=== PATIENT | female | born 1935 | race American Indian/Alaskan Native ===

== ENCOUNTER 2016-10-20 12:30 | Inpatient (IN) | payer OTHER ==
[~2016-10-20] VITALS: Ht 160 cm; Wt 50.8 kg
[2016-10-20] MEDS ORDERED: SODIUM CHLORIDE 0.9%, 500ML IVBOLUS ONE (14:00)
[2016-10-20 15:24] LABS: ASPARTATE AMINO TRANSFERASE 19 U/L (15-37); BLOOD UREA NITROGEN 25 mg/dL (7-18)
[2016-10-20 15:31] LABS: IS PT STATUS REG ER OR PRE ER? YES
[2016-10-20] MEDS ORDERED: DIPH,PERTUSS(ACELL),TET VAC/PF 0.5 ML IM-VACC ONE ×2 (16:30→16:42)
[2016-10-20] MEDS ORDERED: ENALAPRILAT 1.25 MG/ML, 2ML IVPush PRN (18:00)
[2016-10-20] MEDS ORDERED: ACETAMINOPHEN 325 MG TABLET PO PRN (18:00)
[2016-10-20] MEDS ORDERED: ONDANSETRON ODT 4 MG PO PRN (18:00)
[2016-10-20] MEDS ORDERED: DOCUSATE 100 MG CAPSULE PO PRN (18:00)
[2016-10-20] MEDS ORDERED: HYDROcodone/APAP 5/325 TABLET PO PRN (18:00)
[2016-10-20] MEDS ORDERED: TEMAZEPAM 15 MG CAPSULE PO PRN (18:00)
[2016-10-20] MEDS ORDERED: HEPARIN 5,000 UNITS/ML, 1ML ONE (18:19)
[2016-10-20] MEDS: HEPARIN 5,000 UNITS/ML, 1ML SQ SCH (18:21)
[2016-10-20] MEDS ORDERED: AMLO5TAB2 PO (18:29)
[2016-10-20] MEDS ORDERED: LISI40TA PO (18:29)
[2016-10-20] MEDS ORDERED: CA C1TAB60 PO (18:30)
[2016-10-20] MEDS ORDERED: OXYB10TA PO (18:30)
[2016-10-20] MEDS ORDERED: RANI75TA12 PO (18:31)
[2016-10-20] MEDS ORDERED: IRON1TAB60 PO (18:31)
[2016-10-20] MEDS: SODIUM CHLORIDE 0.9% 1,000 ML IV SCH (18:35)
[2016-10-20 20:00] VITALS: BP 157/84
[2016-10-20 22:43] VITALS: BP 157/84
[2016-10-21 02:00] VITALS: BP 160/80
[2016-10-21] MEDS: SODIUM CHLORIDE 0.9% 1,000 ML IV SCH ×3 (02:41→17:53)
[2016-10-21 02:56] LABS: PATH.CAST-FLAG NOT PRESENT; SPERM-FLAG NOT PRESENT; SRC-FLAG NOT PRESENT; XTAL-FLAG NOT PRESENT; YLC-FLAG NOT PRESENT
[2016-10-21] MEDS ORDERED: ASPIRIN 325 MG TABLET EC PO SCH (06:00)
[2016-10-21] MEDS: ASPIRIN 81 MG TABLET EC PO SCH (06:00)
[2016-10-21] MEDS: HEPARIN 5,000 UNITS/ML, 1ML SQ SCH ×3 (06:01→21:38)
[2016-10-21 06:06] LABS: BLOOD UREA NITROGEN 15 mg/dL (7-18)
[2016-10-21 06:36] VITALS: BP 161/81
[2016-10-21 14:00] VITALS: BP 164/81
[2016-10-21 20:00] VITALS: BP 161/70
[2016-10-22 02:00] VITALS: BP 177/95
[2016-10-22 05:59] LABS: BLOOD UREA NITROGEN 10 mg/dL (7-18)
[2016-10-22] MEDS: HEPARIN 5,000 UNITS/ML, 1ML SQ SCH ×3 (05:59→22:08)
[2016-10-22] MEDS: ASPIRIN 81 MG TABLET EC PO SCH (05:59)
[2016-10-22] MEDS: SODIUM CHLORIDE 0.9% 1,000 ML IV SCH ×2 (06:00→20:20)
[2016-10-22 06:55] VITALS: BP 177/94
[2016-10-22 10:00] VITALS: BP 156/77
[2016-10-22 14:11] VITALS: BP 159/91
[2016-10-22 14:15] VITALS: BP 105/68
[2016-10-22 19:23] VITALS: BP 153/73
[2016-10-23 02:00] VITALS: BP_SYST 167; BP_SYST 176; BP_DIAS 84; BP_DIAS 94
[2016-10-23] MEDS: ASPIRIN 81 MG TABLET EC PO SCH (04:41)
[2016-10-23 05:24] LABS: ASPARTATE AMINO TRANSFERASE 13 U/L (15-37); BLOOD UREA NITROGEN 12 mg/dL (7-18)
[2016-10-23] MEDS: HEPARIN 5,000 UNITS/ML, 1ML SQ SCH (06:12)
[2016-10-23 07:40] VITALS: BP 167/83
[2016-10-23] MEDS: SODIUM CHLORIDE 0.9% 1,000 ML IV SCH (08:11)
[2016-10-23] MEDS ORDERED: ASPI-621 PO (09:04)
[2016-10-23] MEDS ORDERED: ATOR40TA78 PO (09:04)
== END 2016-10-23 10:53 | disposition home health service (06) | DRG 69 ==
LOC: ED 15:22 → EDIP 16:23 → 4WST 19:33
PROVIDERS: ADMIT Hospitalist; ATTEND Hospitalist
PROC: 0T9B70Z Drainage of Bladder with Drainage Device, Via Natural or Artificial Opening (ICD-10-PCS; principal; 2016-10-20)
DX: G45.9 Transient cerebral ischemic attack, unspecified (principal); N17.0 Acute kidney failure with tubular necrosis; E44.0 Moderate protein-calorie malnutrition; Z68.1 Body mass index [BMI] 19.9 or less, adult; F03.90 Unspecified dementia, unspecified severity, without behavioral disturbance, psychotic disturbance, mood disturbance, and anxiety; D72.829 Elevated white blood cell count, unspecified; D64.9 Anemia, unspecified; E78.5 Hyperlipidemia, unspecified; S50.312A Abrasion of left elbow, initial encounter; S01.01XA Laceration without foreign body of scalp, initial encounter; W01.0XXA Fall on same level from slipping, tripping and stumbling without subsequent striking against object, initial encounter; H35.30 Unspecified macular degeneration; N18.3 Chronic kidney disease, stage 3 (moderate); I12.9 Hypertensive chronic kidney disease with stage 1 through stage 4 chronic kidney disease, or unspecified chronic kidney disease; Z91.81 History of falling
CPT/HCPCS: 36415; 70450; 70551; 71020; 72050; 80048; 80053; 80061; 81001; 82040; 82550; 83036; 83735; 84100; 84439; 84443; 84484; 85025; 87086; 87186; 90471; 90715; 93005; 93306; 93880; 96360; 96361; J1644; 92523-GN; J7030; J7040

== ENCOUNTER 2016-12-18 11:56 | Inpatient (IN) | payer OTHER ==
[~2016-12-18] VITALS: Ht 157.5 cm; Wt 54.4 kg
[~2016-12-18 11:56] MED LIST: AMLO5TAB2 PO; ASPI-621 PO; ATOR40TA78 PO; CA C1TAB60 PO; IRON1TAB60 PO; LISI40TA PO; OXYB10TA PO; RANI75TA12 PO
[2016-12-18] MEDS ORDERED: SODIUM CHLORIDE FLUSH 10ML SYR IVF ONE (12:00)
[2016-12-18 12:23] LABS: HEMATOCRIT 32.7 % (34.6-47.8); HEMOGLOBIN 10.9 g/dL (11.7-16.4); WHITE BLOOD COUNT 13.7 x10^3/uL (3.4-10)
[2016-12-18 12:36] LABS: BLOOD UREA NITROGEN 15 mg/dL (7-18)
[2016-12-18] MEDS ORDERED: LABETALOL 5MG/ML, 20ML ONE ×3 (13:05→16:23)
[2016-12-18] MEDS ORDERED: LABETALOL 5MG/ML, 20ML IVPush ONE (13:30)
[2016-12-18] MEDS ORDERED: BACITRACIN OINT 500U/GM, 15 GM ONE (13:36)
[2016-12-18] MEDS ORDERED: EPINEPHRINE 1 MG/ML, 1ML ONE (13:36)
[2016-12-18] MEDS ORDERED: BUPIVACAINE/PF 0.5% ONE (13:36)
[2016-12-18] MEDS ORDERED: THROMBIN 5,000 UNIT VIAL TP ONE (13:37)
[2016-12-18] MEDS ORDERED: BACITRACIN 50,000 UNIT ONE (13:37)
[2016-12-18] MEDS ORDERED: FENTANYL PF 100 MCG/2ML ONE ×2 (13:38)
[2016-12-18] MEDS ORDERED: MIDAZOLAM 1 MG/ML, 2ML ONE (13:39)
[2016-12-18] MEDS ORDERED: CEFUROXIME 1.5 GM ONE (14:02)
[2016-12-18] MEDS ORDERED: ROCURONIUM 10 MG/ML ONE (14:02)
[2016-12-18] MEDS ORDERED: PROPOFOL 10 MG/ML, 20ML ONE (14:02)
[2016-12-18] MEDS ORDERED: THROMBIN 20,000 UNIT VIAL TP ONE (14:46)
[2016-12-18] MEDS ORDERED: FENTANYL PF 100 MCG/2ML IV PRN (16:00)
[2016-12-18] MEDS ORDERED: ONDANSETRON 2MG/ML, 2ML IVPush PRN (16:00)
[2016-12-18] MEDS ORDERED: HYDROmorphone 1 MG/ML, 1ML IV PRN (16:00)
[2016-12-18] MEDS ORDERED: OXYcodone 5 MG/5 ML ORAL.SOL UDC PO PRN (16:00)
[2016-12-18] MEDS: LABETALOL 5MG/ML, 20ML IV PRN ×2 (16:24→16:34)
[2016-12-18] MEDS ORDERED: morphine SULFATE 10 MG/ML, 1ML IV PRN (18:00)
[2016-12-18] MEDS ORDERED: NS + 20MEQ KCL 1,000 ML IV SCH (18:00)
[2016-12-18] MEDS ORDERED: ACETAMINOPHEN 325 MG TABLET PO PRN ×2 (18:00)
[2016-12-18] MEDS ORDERED: LABETALOL 5MG/ML, 20ML IV PRN (18:00)
[2016-12-18] MEDS ORDERED: HYDROcodone/APAP 5/325 TABLET PO PRN (18:00)
[2016-12-18] MEDS ORDERED: OXYcodone/APAP 5/325MG TABLET PO PRN (18:00)
[2016-12-18] MEDS ORDERED: ACETAMINOPHEN 650 MG SUPP PR PRN ×2 (18:00)
[2016-12-18] MEDS ORDERED: DIPHENHYDRAMINE 50 MG/ML, 1ML IV PRN (18:00)
[2016-12-18] MEDS ORDERED: ONDANSETRON 2MG/ML, 2ML IV PRN (18:00)
[2016-12-18] MEDS: hydrALAzine 20 MG/ML, 1ML IV PRN (18:03)
[2016-12-18] MEDS: INSULIN REGULAR 100 UNITS/ML, 3ML VIAL SQ-INSULIN SCH (20:54)
[2016-12-18] MEDS: CEFAZOLIN PMX 1GM/50ML 50 ML IVPB SCH (20:57)
[2016-12-18 21:00] VITALS: BP 138/84
[2016-12-18] MEDS: FAMOTIDINE 20 MG/2 ML IVPush SCH (21:05)
[2016-12-19 04:32] LABS: WHITE BLOOD COUNT 9.3 x10^3/uL (3.4-10)
[2016-12-19 04:40] LABS: BLOOD UREA NITROGEN 13 mg/dL (7-18)
[2016-12-19] MEDS: CEFAZOLIN PMX 1GM/50ML 50 ML IVPB SCH (05:04)
[2016-12-19] MEDS: INSULIN REGULAR 100 UNITS/ML, 3ML VIAL SQ-INSULIN SCH ×4 (07:00→20:30)
[2016-12-19] MEDS: FAMOTIDINE 20 MG/2 ML IVPush SCH ×2 (08:30→20:30)
[2016-12-19] MEDS: SENNA/DOCUSATE TABLET PO SCH (08:31)
[2016-12-19] MEDS: FOLIC ACID 1 MG TABLET PO SCH (12:28)
[2016-12-19] MEDS: THIAMINE 100MG TABLET PO SCH (12:28)
[2016-12-19] MEDS: predniSOLONE OPHTH SUSP 1%, 5ML LEFTEYE SCH ×2 (12:29→20:30)
[2016-12-19] MEDS ORDERED: NS + 20MEQ KCL 1,000 ML IV SCH (15:30)
[2016-12-19] MEDS ORDERED: CEFTRIAXONE PMX 1GM/50ML 50 ML IV SCH (20:00)
[2016-12-20] MEDS: hydrALAzine 20 MG/ML, 1ML IV PRN (03:33)
[2016-12-20 04:21] LABS: HEMATOCRIT 26.3 % (34.6-47.8); WHITE BLOOD COUNT 9.7 x10^3/uL (3.4-10)
[2016-12-20 04:32] LABS: BLOOD UREA NITROGEN 9 mg/dL (7-18)
[2016-12-20] MEDS: INSULIN REGULAR 100 UNITS/ML, 3ML VIAL SQ-INSULIN SCH ×4 (07:00→21:00)
[2016-12-20] MEDS: FAMOTIDINE 20 MG/2 ML IVPush SCH ×2 (09:14→21:32)
[2016-12-20] MEDS: THIAMINE 100MG TABLET PO SCH (09:14)
[2016-12-20] MEDS: SENNA/DOCUSATE TABLET PO SCH (09:14)
[2016-12-20] MEDS: FOLIC ACID 1 MG TABLET PO SCH (09:14)
[2016-12-20] MEDS: predniSOLONE OPHTH SUSP 1%, 5ML LEFTEYE SCH ×2 (09:17→21:32)
[2016-12-20 15:41] VITALS: BP 149/74
[2016-12-20] MEDS ORDERED: ONDANSETRON 2MG/ML, 2ML IV PRN ×2 (19:00→21:00)
[2016-12-20] MEDS ORDERED: LABETALOL 5MG/ML, 20ML IV PRN ×2 (19:00→21:00)
[2016-12-20] MEDS ORDERED: DIPHENHYDRAMINE 50 MG/ML, 1ML IV PRN (19:00)
[2016-12-20] MEDS ORDERED: ACETAMINOPHEN 650 MG SUPP PR PRN ×2 (19:00)
[2016-12-20] MEDS ORDERED: HYDROcodone/APAP 5/325 TABLET PO PRN ×2 (19:00→21:00)
[2016-12-20] MEDS ORDERED: morphine SULFATE 10 MG/ML, 1ML IV PRN ×2 (19:00→21:00)
[2016-12-20 19:13] VITALS: BP 155/84
[2016-12-20] MEDS ORDERED: INSULIN REGULAR 100 UNITS/ML, 3ML VIAL SQ-INSULIN SCH (21:00)
[2016-12-20] MEDS ORDERED: CEFTRIAXONE PMX 1GM/50ML 50 ML IV SCH (21:00)
[2016-12-20] MEDS ORDERED: hydrALAzine 20 MG/ML, 1ML IV PRN (21:00)
[2016-12-20] MEDS ORDERED: ACETAMINOPHEN 325 MG TABLET PO PRN (21:00)
[2016-12-20] MEDS: CEFTRIAXONE PMX 1GM/50ML 50 ML IV SCH (21:27)
[2016-12-21 02:12] VITALS: BP 144/79
[2016-12-21 05:02] LABS: BLOOD UREA NITROGEN 11 mg/dL (7-18)
[2016-12-21 05:12] LABS: HEMATOCRIT 24.4 % (34.6-47.8); HEMOGLOBIN 8.2 g/dL (11.7-16.4); WHITE BLOOD COUNT 9.5 x10^3/uL (3.4-10)
[2016-12-21] MEDS: INSULIN REGULAR 100 UNITS/ML, 3ML VIAL SQ-INSULIN SCH ×4 (07:00→21:15)
[2016-12-21 07:04] VITALS: BP 184/81
[2016-12-21] MEDS: hydrALAzine 20 MG/ML, 1ML IV PRN (07:28)
[2016-12-21] MEDS: THIAMINE 100MG TABLET PO SCH (09:00)
[2016-12-21] MEDS: FOLIC ACID 1 MG TABLET PO SCH (09:00)
[2016-12-21] MEDS: FAMOTIDINE 20 MG/2 ML IVPush SCH ×2 (09:00→20:47)
[2016-12-21] MEDS: SENNA/DOCUSATE TABLET PO SCH (09:00)
[2016-12-21] MEDS ORDERED: THIAMINE 100MG TABLET PO SCH (09:00)
[2016-12-21] MEDS: predniSOLONE OPHTH SUSP 1%, 5ML LEFTEYE SCH ×2 (09:00→20:47)
[2016-12-21 12:34] VITALS: BP 154/89
[2016-12-21] MEDS: ACETAMINOPHEN 325 MG TABLET PO PRN ×2 (12:44→21:07)
[2016-12-21 19:40] VITALS: BP 145/82
[2016-12-21] MEDS: CEFTRIAXONE PMX 1GM/50ML 50 ML IV SCH (21:15)
[2016-12-22 02:05] VITALS: BP 158/83
[2016-12-22 05:10] LABS: HEMATOCRIT 25.3 % (34.6-47.8); HEMOGLOBIN 8.5 g/dL (11.7-16.4); WHITE BLOOD COUNT 13.1 x10^3/uL (3.4-10)
[2016-12-22 05:14] LABS: BLOOD UREA NITROGEN 15 mg/dL (7-18)
[2016-12-22] MEDS: INSULIN REGULAR 100 UNITS/ML, 3ML VIAL SQ-INSULIN SCH ×2 (06:23→11:00)
[2016-12-22 07:23] VITALS: BP 118/71
[2016-12-22] MEDS: FOLIC ACID 1 MG TABLET PO SCH (08:40)
[2016-12-22] MEDS: predniSOLONE OPHTH SUSP 1%, 5ML LEFTEYE SCH ×2 (08:41→20:42)
[2016-12-22] MEDS: THIAMINE 100MG TABLET PO SCH (08:42)
[2016-12-22] MEDS: SENNA/DOCUSATE TABLET PO SCH (08:42)
[2016-12-22] MEDS: FAMOTIDINE 20 MG/2 ML IVPush SCH ×2 (08:45→20:42)
[2016-12-22] MEDS ORDERED: GADOBUTROL 7.5 MMOL/7.5 ML PFS ONE (14:00)
[2016-12-22] MEDS: SODIUM CHLORIDE 0.9% 1,000 ML IV SCH (15:46)
[2016-12-22 16:02] VITALS: BP 163/84
[2016-12-22] MEDS: hydrALAzine 20 MG/ML, 1ML IV PRN (16:12)
[2016-12-22 19:55] VITALS: BP 159/80
[2016-12-22] MEDS: CEFTRIAXONE PMX 1GM/50ML 50 ML IV SCH (21:08)
[2016-12-23] MEDS: SODIUM CHLORIDE 0.9% 1,000 ML IV SCH ×2 (00:23→11:30)
[2016-12-23 01:30] VITALS: BP 143/66
[2016-12-23 05:17] LABS: HEMATOCRIT 25.4 % (34.6-47.8); HEMOGLOBIN 8.6 g/dL (11.7-16.4); WHITE BLOOD COUNT 12.3 x10^3/uL (3.4-10)
[2016-12-23 05:28] LABS: BLOOD UREA NITROGEN 14 mg/dL (7-18)
[2016-12-23 06:39] VITALS: BP 150/52
[2016-12-23] MEDS: FOLIC ACID 1 MG TABLET PO SCH (09:00)
[2016-12-23] MEDS: THIAMINE 100MG TABLET PO SCH (09:00)
[2016-12-23] MEDS: SENNA/DOCUSATE TABLET PO SCH (09:00)
[2016-12-23] MEDS ORDERED: LEVETIRACETAM 500 MG TABLET PO SCH (09:30)
[2016-12-23] MEDS: predniSOLONE OPHTH SUSP 1%, 5ML LEFTEYE SCH ×2 (12:40→21:00)
[2016-12-23] MEDS: FAMOTIDINE 20 MG/2 ML IVPush SCH ×2 (12:40→21:00)
[2016-12-23 15:58] VITALS: BP 155/74
[2016-12-23] MEDS: LEVETIRACETAM 500 MG in SODIUM CHLORIDE 0.9% 100 ML IV SCH (19:30)
[2016-12-23 19:49] VITALS: BP 160/80
[2016-12-23 20:24] VITALS: BP 106/51
[2016-12-23] MEDS: D5%-0.9% NACL+KCL 20MEQ 1,000 ML IV SCH (21:00)
[2016-12-23] MEDS: METRONIDAZOLE PMX 500MG/100ML 100 ML IV SCH (21:00)
[2016-12-23] MEDS: CEFTRIAXONE PMX 1GM/50ML 50 ML IV SCH (22:29)
[2016-12-24 02:07] VITALS: BP 126/63
[2016-12-24] MEDS: METRONIDAZOLE PMX 500MG/100ML 100 ML IV SCH ×4 (02:54→22:09)
[2016-12-24 05:08] LABS: HEMATOCRIT 23.5 % (34.6-47.8); HEMOGLOBIN 7.9 g/dL (11.7-16.4); WHITE BLOOD COUNT 9.7 x10^3/uL (3.4-10)
[2016-12-24 05:20] LABS: BLOOD UREA NITROGEN 13 mg/dL (7-18)
[2016-12-24 05:48] LABS: DIFF TOTAL CELLS COUNTED 100 CELL DIFF
[2016-12-24 05:49] LABS: ANISOCYTOSIS 1+; VERIFY COUNTS? YES
[2016-12-24 05:50] LABS: HYPOCHROMIA 1+
[2016-12-24 06:52] VITALS: BP 166/78
[2016-12-24] MEDS: LEVETIRACETAM 500 MG in SODIUM CHLORIDE 0.9% 100 ML IV SCH ×2 (07:36→20:43)
[2016-12-24] MEDS: FAMOTIDINE 20 MG/2 ML IVPush SCH (08:32)
[2016-12-24] MEDS: D5%-0.9% NACL+KCL 20MEQ 1,000 ML IV SCH (08:32)
[2016-12-24] MEDS: predniSOLONE OPHTH SUSP 1%, 5ML LEFTEYE SCH ×2 (09:00→22:09)
[2016-12-24] MEDS: FOLIC ACID 1 MG TABLET PO SCH (09:00)
[2016-12-24] MEDS: SENNA/DOCUSATE TABLET PO SCH (09:00)
[2016-12-24] MEDS: THIAMINE 100MG TABLET PO SCH (09:00)
[2016-12-24 14:00] VITALS: BP 154/87
[2016-12-24] MEDS ORDERED: POTASSIUM CHLORIDE 20 MEQ TAB.ER.PRT PO ONE (15:30)
[2016-12-24] MEDS ORDERED: D5%-0.9% NACL+KCL 20MEQ 1,000 ML IV SCH (15:30)
[2016-12-24] MEDS ORDERED: POTASSIUM CHLORIDE 40 MEQ in SODIUM CHLORIDE 0.9% 500 ML IV ONE (18:30)
[2016-12-24 19:56] VITALS: BP 155/79
[2016-12-24] MEDS: CEFTRIAXONE PMX 1GM/50ML 50 ML IV SCH (23:09)
[2016-12-25 02:42] VITALS: BP 159/90
[2016-12-25] MEDS ORDERED: D5%-0.9% NACL+KCL 20MEQ 1,000 ML IV SCH ×2 (03:30→12:30)
[2016-12-25] MEDS: METRONIDAZOLE PMX 500MG/100ML 100 ML IV SCH ×3 (04:39→17:47)
[2016-12-25 04:57] LABS: HEMATOCRIT 26.4 % (34.6-47.8); HEMOGLOBIN 8.8 g/dL (11.7-16.4); WHITE BLOOD COUNT 10.6 x10^3/uL (3.4-10)
[2016-12-25 05:10] LABS: BLOOD UREA NITROGEN 8 mg/dL (7-18)
[2016-12-25] MEDS ORDERED: MAGNESIUM SULFATE PMX 2GM/50ML 50 ML IV ONE (07:30)
[2016-12-25] MEDS: LEVETIRACETAM 500 MG in SODIUM CHLORIDE 0.9% 100 ML IV SCH (08:00)
[2016-12-25 08:04] VITALS: BP 167/91
[2016-12-25] MEDS: FOLIC ACID 1 MG TABLET PO SCH (08:58)
[2016-12-25] MEDS: SENNA/DOCUSATE TABLET PO SCH (08:59)
[2016-12-25] MEDS: THIAMINE 100MG TABLET PO SCH (08:59)
[2016-12-25] MEDS: predniSOLONE OPHTH SUSP 1%, 5ML LEFTEYE SCH ×2 (12:09→21:30)
[2016-12-25 12:44] VITALS: BP 166/99
[2016-12-25 19:44] VITALS: BP 159/91
[2016-12-26] MEDS: METRONIDAZOLE PMX 500MG/100ML 100 ML IV SCH ×5 (00:35→23:59)
[2016-12-26 02:10] VITALS: BP 151/88
[2016-12-26 03:36] VITALS: BP 156/74
[2016-12-26 07:34] VITALS: BP 155/86
[2016-12-26] MEDS: SENNA/DOCUSATE TABLET PO SCH (09:00)
[2016-12-26] MEDS: FOLIC ACID 1 MG TABLET PO SCH (10:13)
[2016-12-26] MEDS: THIAMINE 100MG TABLET PO SCH (10:13)
[2016-12-26] MEDS: predniSOLONE OPHTH SUSP 1%, 5ML LEFTEYE SCH ×2 (10:13→19:34)
[2016-12-26 12:50] VITALS: BP 147/88
[2016-12-26 19:48] VITALS: BP 153/81
[2016-12-26] MEDS ORDERED: ONDANSETRON 2MG/ML, 2ML IV PRN (20:00)
[2016-12-26] MEDS ORDERED: LABETALOL 5MG/ML, 20ML IV PRN (20:00)
[2016-12-26] MEDS ORDERED: DIPHENHYDRAMINE 50 MG/ML, 1ML IV PRN (20:00)
[2016-12-26 23:59] VITALS: BP 152/87
[2016-12-27] MEDS: METRONIDAZOLE PMX 500MG/100ML 100 ML IV SCH ×4 (05:06→23:18)
[2016-12-27 07:47] VITALS: BP 157/88
[2016-12-27] MEDS: predniSOLONE OPHTH SUSP 1%, 5ML LEFTEYE SCH ×2 (09:00→20:01)
[2016-12-27] MEDS: SENNA/DOCUSATE TABLET PO SCH (09:00)
[2016-12-27] MEDS: THIAMINE 100MG TABLET PO SCH (09:35)
[2016-12-27] MEDS: FOLIC ACID 1 MG TABLET PO SCH (09:35)
[2016-12-27 14:22] VITALS: BP 146/88
[2016-12-27 20:03] VITALS: BP 170/92
[2016-12-27 20:10] VITALS: BP 154/96
[2016-12-28 02:00] VITALS: BP 163/91
[2016-12-28] MEDS: METRONIDAZOLE PMX 500MG/100ML 100 ML IV SCH ×2 (05:08→12:50)
[2016-12-28 06:57] VITALS: BP 169/92
[2016-12-28] MEDS: SENNA/DOCUSATE TABLET PO SCH (08:27)
[2016-12-28] MEDS: predniSOLONE OPHTH SUSP 1%, 5ML LEFTEYE SCH (08:27)
[2016-12-28] MEDS: THIAMINE 100MG TABLET PO SCH (08:27)
[2016-12-28] MEDS: FOLIC ACID 1 MG TABLET PO SCH (08:27)
[2016-12-28 09:22] LABS: BLOOD UREA NITROGEN 5 mg/dL (7-18)
[2016-12-28 10:14] LABS: HEMATOCRIT 29.3 % (34.6-47.8); HEMOGLOBIN 9.3 g/dL (11.7-16.4); WHITE BLOOD COUNT 8.6 x10^3/uL (3.4-10)
[2016-12-28] MEDS ORDERED: FOLI-17 PO (13:32)
[2016-12-28] MEDS ORDERED: THIA100T6 PO (13:32)
[2016-12-28] MEDS ORDERED: METR500T PO (13:32)
[2016-12-28 14:39] VITALS: BP 149/86
== END 2016-12-28 17:00 | disposition home or self-care (01) | DRG 25 ==
LOC: ED 12:58 → CCU 17:19 → 4NOR 12-20 15:30
PROVIDERS: ADMIT Neurological Surgery; ATTEND Neurological Surgery
PROC: 0NS00ZZ Reposition Skull, Open Approach (ICD-10-PCS; 2016-12-18)
PROC: 00C40ZZ Extirpation of Matter from Intracranial Subdural Space, Open Approach (ICD-10-PCS; principal; 2016-12-18 13:30)
DX: S06.5X0A Traumatic subdural hemorrhage without loss of consciousness, initial encounter (principal); G93.5 Compression of brain; G93.41 Metabolic encephalopathy; G93.6 Cerebral edema; A04.7 Enterocolitis due to Clostridium difficile; E44.0 Moderate protein-calorie malnutrition; G81.94 Hemiplegia, unspecified affecting left nondominant side; N39.0 Urinary tract infection, site not specified; S02.19XA Other fracture of base of skull, initial encounter for closed fracture; Z68.21 Body mass index [BMI] 21.0-21.9, adult; B96.20 Unspecified Escherichia coli [E. coli] as the cause of diseases classified elsewhere; E78.5 Hyperlipidemia, unspecified; F03.90 Unspecified dementia, unspecified severity, without behavioral disturbance, psychotic disturbance, mood disturbance, and anxiety; G93.89 Other specified disorders of brain; I10 Essential (primary) hypertension; R13.10 Dysphagia, unspecified; R29.6 Repeated falls; W18.30XA Fall on same level, unspecified, initial encounter; Y92.009 Unspecified place in unspecified non-institutional (private) residence as the place of occurrence of the external cause; Z66 Do not resuscitate; Z86.73 Personal history of transient ischemic attack (TIA), and cerebral infarction without residual deficits
CPT/HCPCS: 36415; 70450; 70553; 71010; 74230; 80048; 81001; 82040; 82962; 83735; 85025; 85610; 85730; 86850; 86900; 87040; 87077; 87081; 87086; 87186; 87324; 93005; 95819; 96374; A9585; C1713; J0171; J0690; J0696; J0697; J1953; J2250; J2704; J3010; J3480; J3490; J0360; J3475; J7030; J7040; P9035; S0028

== ENCOUNTER 2017-07-11 18:25 | Inpatient (IN) | payer OTHER ==
[~2017-07-11] VITALS: Ht 154.9 cm; Wt 55.7 kg
[~2017-07-11 18:25] MED LIST changes: +FOLI-17 PO; +METR500T PO; +THIA100T6 PO
[2017-07-11 19:18] LABS: BASOPHILS # (AUTO) 0.03 x10^3/uL (0-0.1); BASOPHILS % (AUTO) 0 % (0-1); EOSINOPHILS # (AUTO) 0.28 x10^3/uL (0-0.4); EOSINOPHILS % (AUTO) 4 % (1-7); LYMPHOCYTES # (AUTO) 1.35 x10^3/uL (1-3.4); LYMPHOCYTES % (AUTO) 20 % (22-44); MD NO; MEAN CORPUSCULAR HGB CONC 33.3 g/dL (32.4-35.8); MEAN CORPUSCULAR VOLUME 81.1 fL (80-100); MEAN PLATELET VOLUME 7.8 fL (7.4-10.4); MONOCYTES # (AUTO) 0.54 x10^3/uL (0.2-0.8); MONOCYTES % (AUTO) 8 % (2-9); NEUTROPHILS # (AUTO) 4.59 x10^3/uL (1.8-6.8); NEUTROPHILS % (AUTO) 68 % (42-75); PLATELET COUNT 336 x10^3/uL (130-400); RED BLOOD COUNT 3.85 x10^6/uL (3.82-5.3); RED CELL DISTRIBUTION WIDTH 17.3 % (9.6-15.2)
[2017-07-11] MEDS ORDERED: CALC-112 PO (19:18)
[2017-07-11] MEDS ORDERED: LISI-167 PO (19:18)
[2017-07-11] MEDS ORDERED: MULT-257 PO (19:18)
[2017-07-11] MEDS ORDERED: DOXY100C2 PO (19:18)
[2017-07-11] MEDS ORDERED: OMEP40CA6 PO (19:18)
[2017-07-11] MEDS ORDERED: CHOL20002 PO (19:18)
[2017-07-11 19:30] LABS: ALANINE AMINOTRANSFERASE 21 U/L (12-78); ALBUMIN 3.1 g/dL (3.4-5.0); ANION GAP 9 mmol/L (5-15); CHLORIDE 106 mmol/L (98-107); CREATININE 1.82 mg/dL (0.55-1.02)
[2017-07-11] MEDS ORDERED: SODIUM CHLORIDE FLUSH 10ML SYR IVF ONE (19:30)
[2017-07-11 19:34] LABS: ALKALINE PHOSPHATASE 99 U/L (45-117); BILIRUBIN,TOTAL 0.2 mg/dL (0.2-1.0); TOTAL PROTEIN 7.6 g/dL (6.4-8.2); TROPONIN I < 0.015 ng/mL (0.000-0.045)
[2017-07-11 19:43] LABS: PROTHROMBIN TIME 10.3 Seconds (9.6-11.5)
[2017-07-11] MEDS ORDERED: SODIUM CHLORIDE 0.9% 1,000ML IVBOLUS ONE (21:30)
[2017-07-11] MEDS ORDERED: ONDANSETRON ODT 4 MG PO PRN (21:30)
[2017-07-11] MEDS: ATORVASTATIN 40 MG TABLET PO SCH (21:30)
[2017-07-11] MEDS ORDERED: ACETAMINOPHEN 325 MG TABLET PO PRN (21:30)
[2017-07-11] MEDS ORDERED: DOCUSATE 100 MG CAPSULE PO PRN (21:30)
[2017-07-11 22:15] VITALS: BP 119/74
[2017-07-11] MEDS: DOXYCYCLINE 100MG TABLET PO SCH (23:31)
[2017-07-11] MEDS: SODIUM CHLORIDE 0.9% 1,000 ML IV SCH (23:32)
[2017-07-11 23:59] VITALS: BP 126/70
[2017-07-12 01:15] LABS: TROPONIN I < 0.015 ng/mL (0.000-0.045)
[2017-07-12 03:51] VITALS: BP 120/65
[2017-07-12] MEDS: ASPIRIN 81 MG TABLET EC PO SCH (05:16)
[2017-07-12 06:47] LABS: BASOPHILS # (AUTO) 0.02 x10^3/uL (0-0.1); BASOPHILS % (AUTO) 0 % (0-1); EOSINOPHILS % (AUTO) 6 % (1-7); LYMPHOCYTES # (AUTO) 1.53 x10^3/uL (1-3.4); LYMPHOCYTES % (AUTO) 22 % (22-44); MD NO; MEAN CORPUSCULAR HEMOGLOBIN 26.7 pg (27.0-34.8); MEAN CORPUSCULAR HGB CONC 33.2 g/dL (32.4-35.8); MEAN CORPUSCULAR VOLUME 80.6 fL (80-100); MEAN PLATELET VOLUME 7.4 fL (7.4-10.4); MONOCYTES % (AUTO) 7 % (2-9); NEUTROPHILS # (AUTO) 4.48 x10^3/uL (1.8-6.8); NEUTROPHILS % (AUTO) 65 % (42-75); PLATELET COUNT 301 x10^3/uL (130-400); RED BLOOD COUNT 3.72 x10^6/uL (3.82-5.3)
[2017-07-12 06:55] VITALS: BP 152/84
[2017-07-12 06:59] LABS: ANION GAP 6 mmol/L (5-15); CHLORIDE 107 mmol/L (98-107); CHOLESTEROL, TOTAL 124 mg/dL (140-239); CREATININE 1.25 mg/dL (0.55-1.02); TRIGLYCERIDES 105 mg/dL (50-200); VLDL CHOLESTEROL 21 mg/dL (0-25)
[2017-07-12 07:03] LABS: CHOL/HDL RATIO 3.1; HDL CHOL % 32 % (28-40); HDL CHOLESTEROL (DIRECT) 40 mg/dL (40-60); LDL CHOLESTEROL,CALCULATED 63 mg/dL (54-169); LDL/HDL RATIO 1.6 (0.5-3.0); TROPONIN I < 0.015 ng/mL (0.000-0.045)
[2017-07-12] MEDS: CALCIUM/VITAMIN D3 250-125 TABLET PO SCH ×2 (08:45→21:00)
[2017-07-12] MEDS: DOXYCYCLINE 100MG TABLET PO SCH ×2 (08:45→21:00)
[2017-07-12] MEDS: OXYBUTYNIN CHLORIDE 5 MG TABLET PO SCH ×2 (08:45→21:00)
[2017-07-12] MEDS: CHOLECALCIFEROL 1,000 UNIT TABLET PO SCH (08:45)
[2017-07-12] MEDS: OMEPRAZOLE 20 MG CAPSULE.DR PO SCH (08:45)
[2017-07-12] MEDS: MULTIVITAMIN 1 TABLET PO SCH (08:45)
[2017-07-12] MEDS: SODIUM CHLORIDE 0.9% 1,000 ML IV SCH ×2 (08:58→21:11)
[2017-07-12 09:54] LABS: MICROSCOPIC NOT IND
[2017-07-12 10:02] LABS: CULTURE INDICATED? NO
[2017-07-12 14:46] VITALS: BP 146/73
[2017-07-12 20:09] VITALS: BP 144/78
[2017-07-12] MEDS: ATORVASTATIN 40 MG TABLET PO SCH (21:00)
[2017-07-13 03:25] VITALS: BP 157/82
[2017-07-13 05:44] LABS: BASOPHILS # (AUTO) 0.02 x10^3/uL (0-0.1); BASOPHILS % (AUTO) 0 % (0-1); EOSINOPHILS % (AUTO) 9 % (1-7); LYMPHOCYTES % (AUTO) 30 % (22-44); MD NO; MEAN CORPUSCULAR HEMOGLOBIN 27.3 pg (27.0-34.8); MEAN CORPUSCULAR HGB CONC 33.6 g/dL (32.4-35.8); MEAN CORPUSCULAR VOLUME 81.2 fL (80-100); MEAN PLATELET VOLUME 7.7 fL (7.4-10.4); MONOCYTES # (AUTO) 0.53 x10^3/uL (0.2-0.8); MONOCYTES % (AUTO) 9 % (2-9); NEUTROPHILS # (AUTO) 2.98 x10^3/uL (1.8-6.8); NEUTROPHILS % (AUTO) 52 % (42-75); PLATELET COUNT 285 x10^3/uL (130-400); RED BLOOD COUNT 3.65 x10^6/uL (3.82-5.3); RED CELL DISTRIBUTION WIDTH 16.8 % (9.6-15.2)
[2017-07-13] MEDS: ASPIRIN 81 MG TABLET EC PO SCH (06:04)
[2017-07-13 06:09] LABS: ANION GAP 8 mmol/L (5-15); CALCIUM 7.9 mg/dL (8.5-10.1); CHLORIDE 108 mmol/L (98-107); CREATININE 1.08 mg/dL (0.55-1.02)
[2017-07-13] MEDS: SODIUM CHLORIDE 0.9% 1,000 ML IV SCH ×2 (07:04→17:47)
[2017-07-13 08:56] VITALS: BP 170/96
[2017-07-13] MEDS: OMEPRAZOLE 20 MG CAPSULE.DR PO SCH (11:15)
[2017-07-13] MEDS: MULTIVITAMIN 1 TABLET PO SCH (11:15)
[2017-07-13] MEDS: DOXYCYCLINE 100MG TABLET PO SCH ×2 (11:15→20:48)
[2017-07-13] MEDS: CALCIUM/VITAMIN D3 250-125 TABLET PO SCH ×2 (11:15→20:47)
[2017-07-13] MEDS: OXYBUTYNIN CHLORIDE 5 MG TABLET PO SCH ×2 (11:15→20:47)
[2017-07-13] MEDS: CHOLECALCIFEROL 1,000 UNIT TABLET PO SCH (11:15)
[2017-07-13 16:04] VITALS: BP 153/79
[2017-07-13 19:35] VITALS: BP 151/89
[2017-07-13] MEDS: ATORVASTATIN 40 MG TABLET PO SCH (20:48)
[2017-07-13] MEDS: DIPHENHYDRAMINE 25 MG CAPSULE PO PRN (23:59)
[2017-07-14 01:44] VITALS: BP 162/82
[2017-07-14] MEDS: SODIUM CHLORIDE 0.9% 1,000 ML IV SCH ×2 (04:53→14:38)
[2017-07-14 05:40] LABS: BASOPHILS # (AUTO) 0.03 x10^3/uL (0-0.1); BASOPHILS % (AUTO) 1 % (0-1); EOSINOPHILS # (AUTO) 0.56 x10^3/uL (0-0.4); EOSINOPHILS % (AUTO) 11 % (1-7); LYMPHOCYTES % (AUTO) 32 % (22-44); MD NO; MEAN CORPUSCULAR HEMOGLOBIN 26.8 pg (27.0-34.8); MEAN CORPUSCULAR HGB CONC 32.9 g/dL (32.4-35.8); MEAN CORPUSCULAR VOLUME 81.5 fL (80-100); MEAN PLATELET VOLUME 7.8 fL (7.4-10.4); MONOCYTES # (AUTO) 0.53 x10^3/uL (0.2-0.8); MONOCYTES % (AUTO) 10 % (2-9); NEUTROPHILS # (AUTO) 2.54 x10^3/uL (1.8-6.8); NEUTROPHILS % (AUTO) 47 % (42-75); PLATELET COUNT 302 x10^3/uL (130-400); RED BLOOD COUNT 3.92 x10^6/uL (3.82-5.3)
[2017-07-14 05:46] LABS: ANION GAP 7 mmol/L (5-15); CALCIUM 8.2 mg/dL (8.5-10.1); CHLORIDE 106 mmol/L (98-107); CREATININE 1.03 mg/dL (0.55-1.02)
[2017-07-14] MEDS: ASPIRIN 81 MG TABLET EC PO SCH (06:46)
[2017-07-14 07:10] VITALS: BP 176/85
[2017-07-14] MEDS: THIAMINE 100MG TABLET PO SCH (08:19)
[2017-07-14] MEDS: OMEPRAZOLE 20 MG CAPSULE.DR PO SCH (08:19)
[2017-07-14] MEDS: OXYBUTYNIN CHLORIDE 5 MG TABLET PO SCH ×2 (08:19→21:02)
[2017-07-14] MEDS: CALCIUM/VITAMIN D3 250-125 TABLET PO SCH ×2 (08:20→21:03)
[2017-07-14] MEDS: CHOLECALCIFEROL 1,000 UNIT TABLET PO SCH (08:20)
[2017-07-14] MEDS: MULTIVITAMIN 1 TABLET PO SCH (08:20)
[2017-07-14] MEDS: DOXYCYCLINE 100MG TABLET PO SCH ×2 (08:20→21:00)
[2017-07-14] MEDS ORDERED: AMLODIPINE 5 MG TABLET PO SCH (09:00)
[2017-07-14 13:11] VITALS: BP 176/68
[2017-07-14 20:15] VITALS: BP 151/81
[2017-07-14] MEDS: ATORVASTATIN 40 MG TABLET PO SCH (21:03)
[2017-07-14] MEDS: DIPHENHYDRAMINE 25 MG CAPSULE PO PRN (21:11)
[2017-07-15 01:43] VITALS: BP 155/90
[2017-07-15 05:50] LABS: BASOPHILS # (AUTO) 0.03 x10^3/uL (0-0.1); MD NO
[2017-07-15 05:56] LABS: ANION GAP 5 mmol/L (5-15); CALCIUM 8.4 mg/dL (8.5-10.1); CHLORIDE 107 mmol/L (98-107)
[2017-07-15 06:23] LABS: IRON LEVEL 35 mcg/dL (50-170); TOTAL IRON BINDING CAPACITY 271 mcg/dL (250-450)
[2017-07-15 06:24] LABS: % IRON SATURATION 13 % (20-55)
[2017-07-15 06:29] LABS: FOLATE LEVEL > 20.0 ng/mL (3.1-17.5)
[2017-07-15] MEDS: ASPIRIN 81 MG TABLET EC PO SCH (06:49)
[2017-07-15 06:50] VITALS: BP 163/69
[2017-07-15 07:03] LABS: BASOPHILS % (AUTO) 1 % (0-1); EOSINOPHILS % (AUTO) 10 % (1-7); LYMPHOCYTES % (AUTO) 28 % (22-44); MEAN CORPUSCULAR HEMOGLOBIN 26.1 pg (27.0-34.8); MEAN CORPUSCULAR HGB CONC 32.4 g/dL (32.4-35.8); MEAN CORPUSCULAR VOLUME 80.4 fL (80-100); MONOCYTES % (AUTO) 10 % (2-9); NEUTROPHILS # (AUTO) 2.52 x10^3/uL (1.8-6.8); NEUTROPHILS % (AUTO) 51 % (42-75); PLATELET COUNT 317 x10^3/uL (130-400); RED BLOOD COUNT 3.82 x10^6/uL (3.82-5.3); RED CELL DISTRIBUTION WIDTH 17.3 % (9.6-15.2)
[2017-07-15] MEDS: OMEPRAZOLE 20 MG CAPSULE.DR PO SCH (10:02)
[2017-07-15] MEDS: MULTIVITAMIN 1 TABLET PO SCH (10:02)
[2017-07-15] MEDS: AMLODIPINE 5 MG TABLET PO SCH (10:02)
[2017-07-15] MEDS: THIAMINE 100MG TABLET PO SCH (10:03)
[2017-07-15] MEDS: OXYBUTYNIN CHLORIDE 5 MG TABLET PO SCH ×2 (10:03→22:20)
[2017-07-15] MEDS: CHOLECALCIFEROL 1,000 UNIT TABLET PO SCH (10:03)
[2017-07-15] MEDS: CALCIUM/VITAMIN D3 250-125 TABLET PO SCH ×2 (10:26→22:18)
[2017-07-15] MEDS: LAMOTRIGINE 25 MG TABLET PO SCH ×2 (10:28→22:18)
[2017-07-15 15:00] VITALS: BP 147/69
[2017-07-15 18:57] VITALS: BP 130/64
[2017-07-15 19:18] VITALS: BP 130/75
[2017-07-15] MEDS: ATORVASTATIN 40 MG TABLET PO SCH (22:18)
[2017-07-16 01:13] VITALS: BP 127/73
[2017-07-16 06:46] LABS: ANION GAP 9 mmol/L (5-15); CALCIUM 8.3 mg/dL (8.5-10.1); CHLORIDE 104 mmol/L (98-107)
[2017-07-16] MEDS ORDERED: SODIUM CHLORIDE 0.9%, 500ML IVBOLUS ONE (07:30)
[2017-07-16 08:30] VITALS: BP 149/86
[2017-07-16] MEDS: MULTIVITAMIN 1 TABLET PO SCH (10:05)
[2017-07-16] MEDS: CHOLECALCIFEROL 1,000 UNIT TABLET PO SCH (10:05)
[2017-07-16] MEDS: ASPIRIN 81 MG TABLET CHEW PO SCH (10:05)
[2017-07-16] MEDS: CALCIUM/VITAMIN D3 250-125 TABLET PO SCH ×2 (10:05→21:11)
[2017-07-16] MEDS: CLOPIDOGREL 75 MG TABLET PO SCH (10:05)
[2017-07-16] MEDS: THIAMINE 100MG TABLET PO SCH (10:06)
[2017-07-16] MEDS: LAMOTRIGINE 25 MG TABLET PO SCH (10:06)
[2017-07-16] MEDS: AMLODIPINE 5 MG TABLET PO SCH (10:06)
[2017-07-16] MEDS: OMEPRAZOLE 20 MG CAPSULE.DR PO SCH (10:13)
[2017-07-16] MEDS: OXYBUTYNIN CHLORIDE 5 MG TABLET PO SCH ×2 (10:13→21:11)
[2017-07-16] MEDS ORDERED: DIPHENHYDRAMINE 12.5MG/5ML, 10ML UDC PO ONE (13:30)
[2017-07-16 14:00] VITALS: BP 144/65
[2017-07-16 18:32] VITALS: BP 156/77
[2017-07-16] MEDS: ATORVASTATIN 40 MG TABLET PO SCH (21:11)
[2017-07-16] MEDS: LEVETIRACETAM 500 MG TABLET PO SCH (21:11)
[2017-07-17 01:47] VITALS: BP 132/75
[2017-07-17 05:05] LABS: BASOPHILS # (AUTO) 0.04 x10^3/uL (0-0.1); BASOPHILS % (AUTO) 1 % (0-1); EOSINOPHILS # (AUTO) 0.47 x10^3/uL (0-0.4); EOSINOPHILS % (AUTO) 9 % (1-7); LYMPHOCYTES % (AUTO) 24 % (22-44); MD NO; MEAN CORPUSCULAR HEMOGLOBIN 26.5 pg (27.0-34.8); MEAN CORPUSCULAR HGB CONC 32.9 g/dL (32.4-35.8); MEAN CORPUSCULAR VOLUME 80.7 fL (80-100); MEAN PLATELET VOLUME 7.7 fL (7.4-10.4); MONOCYTES # (AUTO) 0.48 x10^3/uL (0.2-0.8); MONOCYTES % (AUTO) 10 % (2-9); NEUTROPHILS # (AUTO) 2.85 x10^3/uL (1.8-6.8); NEUTROPHILS % (AUTO) 57 % (42-75); PLATELET COUNT 288 x10^3/uL (130-400); RED BLOOD COUNT 3.51 x10^6/uL (3.82-5.3); RED CELL DISTRIBUTION WIDTH 17.3 % (9.6-15.2)
[2017-07-17 05:15] LABS: ANION GAP 6 mmol/L (5-15); CALCIUM 8.4 mg/dL (8.5-10.1); CHLORIDE 106 mmol/L (98-107)
[2017-07-17 05:32] LABS: CREATININE 1.15 mg/dL (0.55-1.02)
[2017-07-17 09:59] VITALS: BP 162/82
[2017-07-17] MEDS: MULTIVITAMIN 1 TABLET PO SCH (10:03)
[2017-07-17] MEDS: CALCIUM/VITAMIN D3 250-125 TABLET PO SCH ×2 (10:03→20:20)
[2017-07-17] MEDS: ASPIRIN 81 MG TABLET CHEW PO SCH (10:03)
[2017-07-17] MEDS: THIAMINE 100MG TABLET PO SCH (10:03)
[2017-07-17] MEDS: OMEPRAZOLE 20 MG CAPSULE.DR PO SCH (10:03)
[2017-07-17] MEDS: CLOPIDOGREL 75 MG TABLET PO SCH (10:03)
[2017-07-17] MEDS: CHOLECALCIFEROL 1,000 UNIT TABLET PO SCH (10:04)
[2017-07-17] MEDS: OXYBUTYNIN CHLORIDE 5 MG TABLET PO SCH ×2 (10:04→20:20)
[2017-07-17] MEDS: LEVETIRACETAM 500 MG TABLET PO SCH ×2 (10:05→20:20)
[2017-07-17] MEDS: AMLODIPINE 5 MG TABLET PO SCH (10:05)
[2017-07-17 14:42] VITALS: BP 151/76
[2017-07-17 19:20] VITALS: BP 128/67
[2017-07-17 20:00] VITALS: BP 140/74
[2017-07-17] MEDS: ATORVASTATIN 40 MG TABLET PO SCH (20:19)
[2017-07-18 00:56] VITALS: BP 161/84
[2017-07-18 07:41] VITALS: BP 136/79
[2017-07-18] MEDS ORDERED: LEVE500T53 PO (08:07)
[2017-07-18] MEDS ORDERED: ASPI-515 PO (08:07)
[2017-07-18] MEDS ORDERED: CLOP75TA PO (08:07)
[2017-07-18] MEDS ORDERED: AMLO5TAB2 PO (08:07)
[2017-07-18] MEDS: OXYBUTYNIN CHLORIDE 5 MG TABLET PO SCH (08:21)
[2017-07-18] MEDS: CLOPIDOGREL 75 MG TABLET PO SCH (08:21)
[2017-07-18] MEDS: CHOLECALCIFEROL 1,000 UNIT TABLET PO SCH (08:21)
[2017-07-18] MEDS: THIAMINE 100MG TABLET PO SCH (08:21)
[2017-07-18] MEDS: LEVETIRACETAM 500 MG TABLET PO SCH (08:21)
[2017-07-18] MEDS: CALCIUM/VITAMIN D3 250-125 TABLET PO SCH (08:21)
[2017-07-18] MEDS: OMEPRAZOLE 20 MG CAPSULE.DR PO SCH (08:22)
[2017-07-18] MEDS: AMLODIPINE 5 MG TABLET PO SCH (08:22)
[2017-07-18] MEDS: MULTIVITAMIN 1 TABLET PO SCH (08:22)
[2017-07-18] MEDS: ASPIRIN 81 MG TABLET CHEW PO SCH (08:22)
== END 2017-07-18 10:27 | disposition home or self-care (01) | DRG 69 ==
LOC: ED 19:00 → EDIP 21:37 → 4EST 22:02
PROVIDERS: ADMIT Hospitalist; ATTEND Hospitalist
DX: G45.9 Transient cerebral ischemic attack, unspecified (principal); N17.0 Acute kidney failure with tubular necrosis; G93.41 Metabolic encephalopathy; E44.0 Moderate protein-calorie malnutrition; R13.10 Dysphagia, unspecified; D50.9 Iron deficiency anemia, unspecified; E78.5 Hyperlipidemia, unspecified; F03.90 Unspecified dementia, unspecified severity, without behavioral disturbance, psychotic disturbance, mood disturbance, and anxiety; G40.909 Epilepsy, unspecified, not intractable, without status epilepticus; I11.9 Hypertensive heart disease without heart failure; R32 Unspecified urinary incontinence; F10.20 Alcohol dependence, uncomplicated; E86.0 Dehydration; Z68.23 Body mass index [BMI] 23.0-23.9, adult; Z79.82 Long term (current) use of aspirin; Z79.899 Other long term (current) drug therapy
CPT/HCPCS: 36415; 70450; 70544; 70551; 71045; 74230; 80048; 80053; 80061; 81003; 82607; 82728; 82746; 83540; 83550; 84484; 85025; 85610; 85730; 93005; 93306; 93880; 95819; 99285; J7030; J7040; Q0163

== ENCOUNTER → 2017-08-16 | Outpatient (CLI) | payer OTHER ==
[~2017-08-16] MED LIST changes: +ASPI-515 PO; +CALC-112 PO; +CHOL20002 PO; +CLOP75TA PO; +DOXY100C2 PO; +LEVE500T53 PO; +LISI-167 PO; +MULT-257 PO; +OMEP40CA6 PO
== END ==
LOC: RAD 08:34
PROVIDERS: ATTEND Internal Medicine Gastroenterology
DX: K21.9 Gastro-esophageal reflux disease without esophagitis (principal); K44.9 Diaphragmatic hernia without obstruction or gangrene; K22.8 Other specified diseases of esophagus; I67.9 Cerebrovascular disease, unspecified; D50.9 Iron deficiency anemia, unspecified
CPT/HCPCS: 74220

== ENCOUNTER → 2017-08-17 | Outpatient (CLI) | payer OTHER | END | disposition home or self-care (01) | LOC: RAD 10:13 | PROVIDERS: ATTEND Registered Nurse | DX: I65.1 Occlusion and stenosis of basilar artery (principal); I66.01 Occlusion and stenosis of right middle cerebral artery | CPT/HCPCS: 70544 ==

== ENCOUNTER 2017-10-14 19:05 | Emergency (ER) | payer OTHER ==
[~2017-10-14] VITALS: Ht 149.9 cm; Wt 48.6 kg
[2017-10-14 20:24] VITALS: BP 125/73
== END 2017-10-14 21:00 | disposition home or self-care (01) ==
LOC: ED 20:15
DX: S06.0X0A Concussion without loss of consciousness, initial encounter (principal); S02.2XXA Fracture of nasal bones, initial encounter for closed fracture; I10 Essential (primary) hypertension; Z86.73 Personal history of transient ischemic attack (TIA), and cerebral infarction without residual deficits; W01.0XXA Fall on same level from slipping, tripping and stumbling without subsequent striking against object, initial encounter; Y93.89 Activity, other specified; Y92.009 Unspecified place in unspecified non-institutional (private) residence as the place of occurrence of the external cause; Y99.8 Other external cause status
CPT/HCPCS: 12011; 70450; 70486; 99284

== ENCOUNTER → 2018-02-22 | Outpatient (CLI) | payer OTHER ==
[~2018-02-22] MED LIST changes: -AMLO5TAB2 PO; +AMLO5TAB7 PO; -CHOL20002 PO; +CHOL200085 PO; -THIA100T6 PO; +THIA100T67 PO
== END | disposition home or self-care (01) ==
LOC: CFH 11:03
PROVIDERS: ATTEND Registered Nurse
DX: I66.21 Occlusion and stenosis of right posterior cerebral artery (principal); I66.03 Occlusion and stenosis of bilateral middle cerebral arteries
CPT/HCPCS: 70544

== ENCOUNTER 2019-02-28 09:31 | Outpatient (CLI) | payer OTHER ==
[~2019-02-28 09:31] MED LIST changes: +AMLO-150 PO; -AMLO5TAB7 PO; -ASPI-621 PO; +ASPI81TA45 PO; +CHOL20002 PO; -CHOL200085 PO; +OMEP40CA42 PO; -OMEP40CA6 PO; -OXYB10TA PO; +OXYB10TA2 PO; +RANI-244 PO; -RANI75TA12 PO
== END 2019-02-28 23:59 | disposition home or self-care (01) ==
LOC: CFH 09:31
PROVIDERS: ATTEND Registered Nurse
DX: I66.02 Occlusion and stenosis of left middle cerebral artery (principal); I63.9 Cerebral infarction, unspecified; I65.1 Occlusion and stenosis of basilar artery; I65.02 Occlusion and stenosis of left vertebral artery; Z88.8 Allergy status to other drugs, medicaments and biological substances
CPT/HCPCS: 70544